=== PATIENT | male | born 1990 | race Caucasian/White ===

== ENCOUNTER 2019-07-25 09:40 | Emergency (ER) | payer OTHER ==
[~2019-07-25] VITALS: Ht 177.8 cm; Wt 70.3 kg
[2019-07-25 10:04] VITALS: BP 128/76
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
--- NOTE | 2019-07-25 10:06 | NUR ---
ED Nurse Note: NOTED RIGHT GREAT TOE ABRASION.
[2019-07-25] MEDS ORDERED: Tetanus/Diptheria/Pertussis IM ONE ×2 (10:08→10:15)
--- NOTE | 2019-07-25 10:53 | NUR ---
ED Nurse Note: xray completed.
[2019-07-25 11:30] VITALS: BP 120/79
[2019-07-25] MEDS ORDERED: IBUPROFEN600 MG ORAL (12:33)
--- NOTE | 2019-07-25 13:17 | Diagnostic Imaging Report ---
Indication: Foot Pain Comparison: None Findings: 3 views of the right foot were obtained. There is an acute fracture of the middle and distal phalanges of the fifth toe with probable extension into the proximal interphalangeal joint. There is also fracture involving the first distal phalange base with extension into the interphalangeal joint. IMPRESSION: Acute fractures involving the first distal phalange and the fifth middle and distal phalanges.
--- NOTE | 2019-07-25 13:18 | Diagnostic Imaging Report ---
Indication: Right knee Pain 3 views of the right knee were obtained. Findings: No acute fracture, malalignment, or joint effusion are identified. Impression: Negative for acute findings.
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
[2019-07-25 13:38] VITALS: BP 127/83
--- NOTE | 2019-07-25 13:39 | NUR ---
ER DISCHARGE NOTE: Patient is cleared to be discharged per ERMD, pt is aox4, on room air, with stable vital signs. pt was given dc and prescription instructions, pt was able to verbalize understanding, pt id band removed. pt is able to ambulate with steady gait. pt took all belongings.
== END 2019-07-25 13:40 | disposition home or self-care (01) ==
LOC: EMR 10:40
DX: S90.221A Contusion of right lesser toe(s) with damage to nail, initial encounter (principal); S92.531A Displaced fracture of distal phalanx of right lesser toe(s), initial encounter for closed fracture; S92.421A Displaced fracture of distal phalanx of right great toe, initial encounter for closed fracture; Z23 Encounter for immunization; V23.4XXA Motorcycle driver injured in collision with car, pick-up truck or van in traffic accident, initial encounter; Y92.410 Unspecified street and highway as the place of occurrence of the external cause
CPT/HCPCS: 90471; 90715; 99284